=== PATIENT | female | born 1980 | race Caucasian/White ===

== ENCOUNTER 2023-09-17 19:06 | Emergency (ER) | payer SELFPAY ==
[2023-09-17 19:19] VITALS: BP 125/85; PULSE 95; RESP 16; TEMP 36.6; O2SAT 99; BMI 34.4
--- NOTE | 2023-09-17 19:30 | W.ED.ABDPA2 ---
HPI - Abdominal Pain General: Chief Complaint: Abdominal Pain Stated Complaint: R side pain vomit days Time Seen by Provider: 09/17/23 19:26 History of Present Illness: 43-year-old female comes in today with right upper quadrant abdominal pain that is described as severe. Patient does appear nontoxic. Patient appears in severe pain. Patient had gastric sleeve procedure done 6 months ago. For the last 2 months patient's had episodes of right upper quadrant abdominal pain that was relieved with emesis. Patient reports the pain today was worse and did not relieved after emesis. Patient has had no other abdominal surgeries and does have her gallbladder intact. Associated Symptoms: Reports nausea and vomiting; Denies constipation, diarrhea and fever(s) Related Data: Date of Last Menstrual Period: 08/20/23 Review of Systems General: Reports: 10 or more systems reviewed and unremarkable except in HPI and below Const: Denies: fever(s) Card: Denies: chest pain Resp: Denies: dyspnea GI: Reports: abdominal pain, nausea and vomiting; Denies: diarrhea or constipation : Denies: difficulty voiding [facility] ED Female Reproductive History: Date of last menstrual period: 08/20/23 Physical Exam Const: COMMON NORMALS: alert HENMT: COMMON NORMALS: normocephalic HEAD & SCALP: normocephalic Neck/C-Spine: COMMON NORMALS: full ROM Chest: COMMONS NORMALS: normal inspection of the chest Resp: COMMON NORMALS: normal respiratory effort and clear to auscultation bilaterally AUSCULTATION: clear to auscultation bilaterally Cardio: COMMON NORMALS: regular rate and regular rhythm RATE: regular rate RHYTHM: regular rhythm GI: COMMON NORMALS: Soft to palpation PALPATION: Yes Soft to palpation and Yes Tenderness to palpation present (GI) Details: RUQ : COMMON NORMALS: Yes no CVA tenderness BLADDER/KIDNEY EXAM: Yes no CVA tenderness OB/EXTERNAL & SPECULUM: other (No ulcer or definitive dehiscence, small amount of blood in vaginal vault) Back/Pelvis: COMMON NORMALS: no CVA tenderness Extremity: COMMON NORMALS: normal to inspection Neuro: SENSORIUM/ORIENTATION: Yes alert Skin: COMMON NORMALS: turgor normal GENERAL SKIN EXAM: turgor normal Course Vital Signs: Vital signs: Vital Signs Temperature 97.8 F 09/17/23 19:19 Pulse Rate 95 09/17/23 19:19 Respiratory Rate 18 12/06/23 19:50 Blood Pressure 125/85 09/17/23 19:19 Pulse Oximetry 99 09/17/23 19:19 MDM - Abdominal Pain Medical Decision Making 43-year-old female comes in today with right upper quadrant abdominal pain. On exam patient appears nontoxic. Patient appears in moderate to severe pain. Abdomen soft with some right upper quadrant tenderness. No CVA tenderness. Vital signs are normal. Differential diagnosis includes not limited to gallbladder colic, renal colic, pancreatitis, gastroenteritis, unlikely ACS. CBC and CMP noted some mild increase in alkaline phosphatase and AST's. Bilirubin was normal. CT of the abdomen pelvis noted a 23 mm ovarian cyst on the right side. Gallbladder ultrasound noted several small stones in the gallbladder. Patient's pain was relieved with IV medications. Believe patient probably had gallbladder colic secondary to her cholelithiasis. Patient was recommended to follow-up with surgeon for further evaluation and treatment. Patient be started on dicyclomine, hydrocodone, and ondansetron for control of symptoms until definitive care with gallbladder removal is completed. Case management was requested to have patient follow-up with surgeon. Lab Data 09/17/23 19:36 09/17/23 19:36 Labs/Radiology: Radiology Impressions Abdomen/Pelvis CT 09/17/23 19:36 IMPRESSION: 1. Right ovary 23 mm cyst with minimal peripheral enhancement may reflect a partially collapsed follicle. 2. Fluid in the uterine cavity, likely related to menstrual status. 3. Minimal diverticulosis without diverticulitis. 4. Gastric surgical sutures. 5. Hepatic steatosis. 6. Gallbladder is somewhat distended. Laboratory Results WBC 10.37 10^3/uL (3.29-11.43) 09/17/23 19:36 RBC 5.08 10^6/uL (3.85-5.65) 09/17/23 19:36 Hgb 13.70 g/dL (11.27-16.99) 09/17/23 19:36 Hct 42.1 % (36-47) 09/17/23 19:36 MCV 82.9 fl (85-98) L 09/17/23 19:36 MCH 27.0 pg (27-33) 09/17/23 19:36 MCHC 32.5 g/dL (30-55) 09/17/23 19:36 RDW 14.4 % (12.1-15.1) 09/17/23 19:36 Plt Count 255 10^3/cmm (157-399) 09/17/23 19:36 MPV 12.8 fL (7.4-10.4) H 09/17/23 19:36 Neut % (Auto) 68.4 % 09/17/23 19:36 Lymph % (Auto) 26.5 % 09/17/23 19:36 [place] % (Auto) 4.2 % 09/17/23 19:36 Eos % (Auto) 0.4 % 09/17/23 19:36 Baso % (Auto) 0.2 % 09/17/23 19:36 Neut # (Auto) 7.09 10^3/uL (1.8-7.7) 09/17/23 19:36 Lymph # (Auto) 2.8 10^3/uL (0.8-4.8) 09/17/23 19:36 [place] # (Auto) 0.4 10^3/uL (0.2-0.9) 09/17/23 19:36 Eos # (Auto) 0.0 10^3/uL (0.0-0.8) 09/17/23 19:36 Baso # (Auto) 0.0 10^3/uL (0.0-0.1) 09/17/23 19:36 Nucleated RBC % (auto) 0 % 09/17/23 19:36 Nucleated RBCs # 0.0 /100WBC 09/17/23 19:36 Sodium 137 mmol/L (136-145) 09/17/23 19:36 Potassium 3.8 mmol/L (3.5-5.1) 09/17/23 19:36 Chloride 104 mmol/L (98-107) 09/17/23 19:36 Carbon Dioxide 23 mmol/L (22-29) 09/17/23 19:36 Anion Gap 13.8 (5-19) 09/17/23 19:36 BUN 9 mg/dL (6-20) 09/17/23 19:36 Creatinine 0.6 mg/dL (0.5-0.9) 09/17/23 19:36 GFR Calculation 108.6 mL/min (90-130) 09/17/23 19:36 Glucose 110 mg/dL (65-115) 09/17/23 19:36 Calculated Osmolality 283 mOsm/kg (285-295) L 09/17/23 19:36 Calcium 9.2 mg/dL (8.5-10.5) 09/17/23 19:36 Total Bilirubin 0.4 mg/dL (0.15-1.2) 09/17/23 19:36 AST 49 U/L (0-32) H 09/17/23 19:36 ALT 24 U/L (0-33) 09/17/23 19:36 Alkaline Phosphatase 120 U/L (35-105) H 09/17/23 19:36 Troponin T Baseline < 6 ng/L (0-10) 09/17/23 19:38 Total Protein 7.2 g/dL (6.6-8.7) 09/17/23 19:36 Albumin 4.2 g/dL (3.5-5.2) 09/17/23 19:36 Globulin 3.0 g/dL (1.3-4.6) 09/17/23 19:36 Lipase 42 U/L (13-60) 09/17/23 19:36 HCG, Qual Negative (Negative) 09/17/23 19:36 All radiology interpretation(s) finalized by discharge EKG Data EKG 1: EKG interpretation date: 09/17/23 EKG interpretation time: 19:40 Prior EKG tracings: not available for review Interpretation: EKG shows a sinus rhythm with a regular rate at [address] elevation or ectopy is noted. No prior exam was available for comparison. Computer generated interpretation: Sinus rhythm, normal EKG, unconfirmed report. Discharge Plan Discharge Patient Disposition: Home Clinical Impression: Gallbladder colic Condition: Stable Prescriptions: New dicyclomine 20 mg tablet 20 mg PO TID Qty: 30 2RF Rx Instructions: Use 30 minutes prior to your meal in order to avoid gallbladder pain. hydrocodone-acetaminophen 5-325 mg tablet 1 tab PO Q6H PRN (Reason: pain (scale score 7-10)) Qty: 10 0RF ondansetron HCl 4 mg tablet 4 mg PO Q8H PRN (Reason: nausea and vomiting) Qty: 15 0RF Discharge Orders: Discharge ED (Routine); Ordered 12/06/23 Ordered By: Jean Claude Griffith Referrals: Anya Bazan FNP [Primary Care Provider] - Discharge Diet: Usual diet Discharge Activity: Increase activity as tolerated Patient Instructions: Biliary Colic (ED), Opioid Safety Activity Restrictions/Additional Instructions: Eat a light diet. Stay on a clear liquid diet until abdominal pain resolves. Then increase diet up to a bland diet. Avoid really greasy and fatty foods as they will cause the gallbladder to contract more increasing risk of pain and discomfort. Drink plenty of water and fluids. Follow-up with primary care for further instructions. Return to ED for worsening symptoms such as high fever, blood in vomit or stool, uncontrolled pain, or new concerns. Coding Level of Care Code ED Fuel Technician for Beto Schulz
--- NOTE | 2023-09-17 19:36 | CTR_ITS ---
PROCEDURE INFORMATION: Exam: CT Abdomen And Pelvis With Contrast Exam date and time: 09/17/2023 8:17 PM Age: 43 years old Clinical indication: Abdominal pain; Localized; Right upper quadrant (ruq); Prior surgery; Surgery date: 6+ months; Surgery type: Gastric sleeve. Patient HX: Ruq pain/base of right lung pain; Additional info: Right abd pain, 6-month status post gastric sleeve, history of renal TECHNIQUE: Imaging protocol: Computed tomography of the abdomen and pelvis with contrast. Radiation optimization: All CT scans at this facility use at least one of these dose optimization techniques: automated exposure control; mA and/or kV adjustment per patient size (includes targeted exams where dose is matched to clinical indication); or iterative reconstruction. Contrast material: OMNI 350; Contrast volume: 100 ml; Contrast route: INTRAVENOUS (IV); REPORTING DATA: Count of CT and Cardiac NM exams in prior 12 months: This patient has received 0 known CTs and 0 known cardiac nuclear medicine studies in the 12 months prior to the current study. COMPARISON: US OB limited [id number] 10/31/2016 7:12 AM RADIATION DOSE METRICS: Total DLP (mGy-cm): 841.61 FINDINGS: Liver: Hepatic steatosis. Gallbladder and bile ducts: Gallbladder is somewhat distended. Pancreas: Normal. No ductal dilation. Spleen: Normal. No splenomegaly. Adrenal glands: Normal. No mass. Kidneys and ureters: Normal. No hydronephrosis. Stomach and bowel: Minimal diverticulosis without diverticulitis. Gastric surgical sutures. Appendix: No evidence of appendicitis. Intraperitoneal space: Unremarkable. No free air. No significant fluid collection. Vasculature: Unremarkable. No abdominal aortic aneurysm. Lymph nodes: Unremarkable. No enlarged lymph nodes. Urinary bladder: Unremarkable as visualized. Reproductive: Right ovary 23 mm cyst with minimal peripheral enhancement may reflect a partially collapsed follicle. Fluid in the uterine cavity, likely related to menstrual status. Bones/joints: Unremarkable. No acute fracture. Soft tissues: Unremarkable. CT/CT abdomen pelvis w con* [id number] IMPRESSION: 1. Right ovary 23 mm cyst with minimal peripheral enhancement may reflect a partially collapsed follicle. 2. Fluid in the uterine cavity, likely related to menstrual status. 3. Minimal diverticulosis without diverticulitis. 4. Gastric surgical sutures. 5. Hepatic steatosis. 6. Gallbladder is somewhat distended.
--- NOTE | 2023-09-17 19:38 | ECG_ITS ---
[facility] Test Date: 2023-09-17 Pat Name: Jyoti Griffith Department: Room: Gender: Female Weight And Test Bar Clerk: : 1980 Requested By: Jean Claude Busch Order Number: [id number] Chepe MD: Jack Spence M.D. Measurements Intervals [place] Rate: 98 P: 62 TX: 134 QRS: 32 QRSD: 80 T: 34 QT: 348 QTc: 444 Interpretive Statements SINUS RHYTHM No previous ECG available for comparison Electronically Signed On 09-18-2023 6:01:40 SYNTHETIC DEPARTMENT SUPERVISOR by Jack Spence M.D. [id number]
[2023-09-17] MEDS: ketorolac 30 mg/mL INJ 15 MG IVP (19:49)
[2023-09-17 19:50] VITALS: RESP 18
[2023-09-17 19:50] LABS: Basophils % 0.2 %; Eosinophils % 0.4 %; Hematocrit 42.1 % (36-47); Lymphocytes # 2.8 10^3/uL (0.8-4.8); Lymphocytes % 26.5 %; Mean Corpuscular HGB Conc 32.5 g/dL (30-55); Mean Corpuscular Volume 82.9 fl (85-98); Mean Platelet Volume 12.8 fL (7.4-10.4); Monocytes # 0.4 10^3/uL (0.2-0.9); Monocytes % 4.2 %; Neutrophils # 7.09 10^3/uL (1.8-7.7); Neutrophils % 68.4 %; Nucleated Red Blood Cells % 0 %; Platelet Count 255 10^3/cmm (157-399); Red Blood Count 5.08 10^6/uL (3.85-5.65); Red Cell Distribution Width 14.4 % (12.1-15.1); White Blood Count 10.37 10^3/uL (3.29-11.43)
[2023-09-17] MEDS: ondansetron 2 mg/ML SDV 2 mL 4 MG IVP (19:50)
[2023-09-17] MEDS: fentaNYL 50 mcg/mL INJ 2mL 85 MCG IVP (19:50)
[2023-09-17 19:59] LABS: Alanine Aminotransferase 24 U/L (0-33); Albumin Level 4.2 g/dL (3.5-5.2); Alkaline Phosphatase 120 U/L (35-105); Anion Gap 13.8 (5-19); Aspartate Amino Transferase 49 U/L (0-32); Blood Urea Nitrogen 9 mg/dL (6-20); Calcium 9.2 mg/dL (8.5-10.5); Carbon Dioxide 23 mmol/L (22-29); Chloride 104 mmol/L (98-107); Glomerular Filtration Rate 108.6 mL/min (90-130); Glucose 110 mg/dL (65-115); Lipase 42 U/L (13-60); Osmolality Calculated 283 mOsm/kg (285-295); Potassium 3.8 mmol/L (3.5-5.1); Sodium 137 mmol/L (136-145); Total Bilirubin 0.4 mg/dL (0.15-1.2); Total Protein 7.2 g/dL (6.6-8.7)
[2023-09-17 20:02] LABS: Troponin(5th) Baseline < 6 ng/L (0-10)
[2023-09-17 20:05] LABS: HCG, Serum Qual Negative (Negative)
--- NOTE | 2023-09-17 20:07 | USR_ITS ---
PROCEDURE INFORMATION: Exam: US Abdomen, Limited; Right Upper Quadrant Exam date and time: 09/17/2023 8:31 PM Age: 43 years old Clinical indication: Abdominal pain; Prior surgery; Surgery date: 6+ months; Patient HX: Ruq pain tonight. Patient is 6 months S/P gastric sleeve surgery. Normal tbili = 0.4, elevated ast = 49, normal alt = 24, elevated alkphos = 120, normal lipase = 42, negative hcg TECHNIQUE: Imaging protocol: Real time ultrasound of the abdomen with image documentation. Limited exam focused on the right upper quadrant. COMPARISON: CT abdomen pelvis w con* [id number] 09/17/2023 8:17 PM FINDINGS: Liver: Normal. No masses. Gallbladder: Cholelithiasis. Positive Pratt's sign. Gallbladder wall thickened at 4.4 mm. Biliary ducts: Common bile duct normal 5 mm. Pancreas: Visualized pancreas is unremarkable. Right kidney: Normal. No mass. No hydronephrosis. US/US gall bladder [id number] IMPRESSION: Cholelithiasis with mild gallbladder wall thickening and a positive Pratt's sign, concerning for an evolving cholecystitis in the appropriate clinical setting, nuclear medicine HIDA scan could further characterize this as clinically indicated.
[2023-09-17] MEDS: iohexol 350 mg/mL 500 mL Btl (per mL) IV (20:27)
[2023-09-17 21:17] VITALS: PULSE 80; RESP 16; O2SAT 99
--- NOTE | 2023-09-17 21:25 | PC.NURSE ---
Pt was discharged prior to obtaining urine specimen during patient's stay.
--- NOTE | 2023-09-18 07:35 | DCPLANNER ---
Referral was sent to general surgery on 09/18/23 at 0735. Clinic to contact patient.
== END 2023-09-17 21:26 | disposition home or self-care (01) ==
PROVIDERS: Emergency Provider Nurse Practitioner Family; PCP Nurse Practitioner
DX: K80.20 Calculus of gallbladder without cholecystitis without obstruction (principal); N83.201 Unspecified ovarian cyst, right side; K57.90 Diverticulosis of intestine, part unspecified, without perforation or abscess without bleeding
CPT/HCPCS: 36415; 74177; 76705; 80053; 83690; 84484; 84703; 85025; 93005; 96374; 96375; 99285; J1885; J2405; J3010; Q9967

== ENCOUNTER 2023-10-12 16:38 | Observation (INO) | payer SELFPAY ==
[2023-10-12] VITALS (7 sets, daily range): BP systolic 99–131; BP diastolic 67–94; PULSE 78–87; RESP 14–25; TEMP 36.4–36.9; O2SAT 99–100; BMI 33.7
--- NOTE | 2023-10-12 17:26 | ED_ITS ---
HPI - Abdominal Pain 2 General: Chief Complaint: Abdominal Pain Stated Complaint: abd pains, vomiting Time Seen by Provider: 10/12/23 16:51 History of Present Illness: Jyoti Griffith is a 43-year-old female that presents to the emergency department with complaints of right upper quadrant pain. Patient is tearful reports she is in quite a bit of pain. Patient has taken 2 hydrocodone's without any relief of her symptoms. 43-year-old female comes in today with r ight upper quadrant abdominal pain that is described as severe. Patient does appear nontoxic. Patient appears in severe pain. Patient had gastric sleeve procedure done 6 months ago. For the last 2 months patient's had episodes of right upper quadrant abdominal pain that was relieved with emesis. Patient reports the pain today was worse and did not relieved after emesis. Patient has had no other abdominal surgeries and does have her gallbladder intact. Patient saw Dr. Garber 2 weeks ago After a complete history, physical examination and review of all available clinical data I have offered the patient laparoscopic cholecystectomy for symptomatic cholelithiasis. All the risk and benefits of the procedure were discussed with the patient including the risks of bleeding, infection, damage to surrounding structures including liver, duodenum, colon, risk of injuring bile ducts requiring extensive surgery at higher level of care facility, risk of retained stones, bile leak, bili [place], need for subtotal cholecystectomy, hernia and wound related complications, need to conversion to open procedure. Patient shows understanding and would like to proceed. Lap zee will be booked for the next available or day, additional information regarding the procedure will be given to the patient in printed format. Of note patient has been informed that due to history of previous abdominal surgery, she is increased risk for damage to adjacent organs during access and during operation due to possibility of additions. In addition high BMI makes her high risk for hernia. Associated Symptoms: Reports nausea; Denies bloating, chills, constipation, GI cramping, diarrhea, dysuria, fever(s), hematochezia, hematuria and vomiting Review of Systems 2 General: Reports: 10 or more systems reviewed and unremarkable except in HPI and below Const: Denies: fever(s), chills, change in appetite, change in weight, fatigue or malaise Eyes: Denies: change in vision, eye discomfort, eye discharge or eye redness ENMT: Denies: throat pain, enlarged tonsils, odynophagia, hoarseness, ear or mastoid pain, ear discharge, change in hearing, tinnitus, nasal discharge, nasal congestion, post nasal drip or sinus pain Card: Denies: chest pain, palpitations, irregular heart rhythm, edema, dyspnea on exertion, orthopnea or leg pain with exertion Resp: Denies: dyspnea, productive cough, non-productive cough, wheezing, stridor or chest congestion GI: Reports: abdominal pain and nausea; Denies: vomiting, dysphagia, diarrhea, constipation, bloating, GI cramping or hematochezia : Denies: flank pain, difficulty voiding, dysuria, urinary frequency, urinary urgency, urinary hesitancy, oliguria or hematuria Musc: Denies: neck pain, back pain, extremity pain, joint pain, joint swelling, joint redness, joint warmth or muscle weakness Skin/Breast: Denies: rash, pruritus, erythema, photosensitivity or new lesions Neuro: Denies: headache(s), numbness in extremities, weakness in extremities, sensory changes, lack of coordination, difficulty walking, frequent falls, dizziness, confusion, Slurred speech present, difficulty communicating thoughts, seizure-like activity or involuntary movements Endo: Denies: polyuria, polydipsia or tired all the time Lui/Lymph: Denies: easy bruising or easy bleeding PFSH ED 2 PFSH: Social History (Updated 09/22/23 @ 12:58 by KRYSTAL Teague) Smoking and tobacco/nicotine status: former use of tobacco/nicotine Alcohol intake: current Alcohol intake frequency: holidays/special occasions only Physical Exam 2 Const: COMMON NORMALS: no acute distress, patient oriented x3 and alert G ENERAL APPEARANCE: cooperative ORIENTATION/CONSCIOUSNESS: Yes awake, Yes oriented to person, Yes oriented to place and Yes oriented to time HENMT: COMMON NORMALS: normocephalic and atraumatic HEAD & SCALP: n ormocephalic and atraumatic FACE & SINUS: normal facial exam MOUTH: Normal oral and palatal mucosa present THROAT: posterior oropharynx normal Eye: COMMON NORMALS: Equal, round and reactive pupils present, EOMs intact bilaterally, conjunctivae normal and no scleral icterus GENERAL EYE: a ppearance normal, both eyes and all related structures ALIGNMENT: Yes alignment normal PERIORBITAL: periorbital findings normal CONJUNCTIVA: Yes conjunctivae normal PUPIL: Yes Equal, round and reactive pupils present Neck/C-Spine: COMMON NORMALS: full ROM GENERAL: Yes normal visual inspection Lymph: LYMPHATIC: no lymphadenopathy noted Chest: COMMONS NORMALS: normal inspection of the chest Breast/axilla inspection: Yes no chest deformity, asymmetry, normal contours, no nodules, masses, tenderness Resp: COMMON NORMALS: normal respiratory effort, No retractions, No use of accessory muscles and clear to auscultation bilaterally EFFORT & INSPECTION: Yes able to speak in complete sentences and Yes symmetric chest movement A USCULTATION: clear to auscultation bilaterally Cardio: COMMON NORMALS: regular rate, regular rhythm and Peripheral pulses 2+ throughout RATE: regular rate RHYTHM: regular rhythm PERIPHERAL PULSES: Peripheral pulses 2+ throughout GI: COMMON NORMALS: Normal to inspection, nondistended, normoactive bowel sounds present, Soft to palpation and No hepatosplenomegaly present I NSPECTION: Yes normal to inspection AUSCULTATION: Yes normoactive bowel sounds PALPATION: Yes Soft to palpation, Yes Tenderness to palpation present (GI) Details: RUQ (Radiating to the back) and Yes No hepatosplenomegaly present RECTAL EXAM: deferred Extremity: COMMON NORMALS: normal to inspection GENERAL: Yes normal exam except as noted Neuro: COMMON NORMALS: patient oriented x3 SENSORIUM/ORIENTATION: Yes alert, Yes oriented to person, Yes oriented to place and Yes oriented to time CRANIAL NERVES: Yes CN normal except as noted Psych: COMMON NORMALS: mental status grossly normal, Normal thought process present, cooperative, activity/motor behavior normal, denies homicidal ideation and denies suicidal ideation THOUGHT PROCESS: Normal thought process present Skin: COMMON NORMALS: no rashes or lesions noted, no wounds and turgor normal GENERAL SKIN EXAM: no rashes or lesions noted and turgor normal Course 2 Vital Signs: Vital signs: Vital Signs Temperature 98.4 F 10/12/23 17:08 Pulse Rate 87 10/12/23 20:00 Respiratory Rate 25 H 10/12/23 17:46 Blood Pressure 105/72 10/12/23 20:00 Pulse Oximetry 100 10/12/23 20:00 Oxygen Delivery Me thod Room Air 10/12/23 20:00 MDM - Abdominal Pain Medical Decision Making Patient was evaluated in the emergency department for complaints of right upper quadrant abdominal pain. Patient already has diagnosis of cholecystitis and has been evaluated by general surgery on 09/22/2023. Today in the emergency department we reran labs that included a CBC, CMP and lipase. No evidence of pancreatitis. Patient does have a low leukocytosis of 15,000 with elevated liver enzymes and elevated bilirubin. I did speak with Dr. Garber who has recommended a repeat ultrasound to rule out biliary duct dilation. The ultrasound was complete at 8 PM which revealed multiple gallstones, biliary sludge, 4.2 mm gallbladder wall thickening but no biliary duct dilation. Patient to be given a dose of Toradol and Zosyn. Admit to Dr. Garber. Lab Data 10/12/23 17:37 10/12/23 17:37 Labs/Radiology: Radiology Impressions Gallbladder Ultrasound 10/12/23 19:26 IMPRESSION: 1. Multiple gallstones within the gallbladder. 2. Biliary sludge within the gallbladder. 3. 4.2 mm gallbladder wall thickening consistent with cholecystitis versus hepatitis. Laboratory Results WBC 14.31 10^3/uL (3.29-11.43) H 10/12/23 17:37 RBC 5.09 10^6/uL (3.85-5.65) 10/12/23 17:37 Hgb 13.90 g/dL (11.27-16.99) 10/12/23 17:37 Hct 42.2 % (36-47) 10/12/23 17:37 MCV 82.9 fl (85-98) L 10/12/23 17:37 MCH 27.3 pg (27-33) 10/12/23 17:37 MCHC 32.9 g/dL (30-55) 10/12/23 17:37 RDW 14.5 % (12.1-15.1) 10/12/23 17:37 Plt Count 220 10^3/cmm (157-399) 10/12/23 17:37 MPV 13.3 fL (7.4-10.4) H 10/12/23 17:37 Neut % (Auto) 84.5 % 10/12/23 17:37 Lymph % (Auto) 11.0 % 10/12/23 17:37 [place] % (Auto) 3.8 % 10/12/23 17:37 Eos % (Auto) 0.1 % 10/12/23 17:37 Baso % (Auto) 0.1 % 10/12/23 17:37 Neut # (Auto) 12.10 10^3/uL (1.8-7.7) H 10/12/23 17:37 Lymph # (Auto) 1.6 10^3/uL (0.8-4.8) 10/12/23 17:37 [place] # (Auto) 0.5 10^3/uL (0.2-0.9) 10/12/23 17:37 Eos # (Auto) 0.0 10^3/uL (0.0-0.8) 10/12/23 17:37 Baso # (Auto) 0.0 10^3/uL (0.0-0.1) 10/12/23 17:37 Nucleated RBC % (auto) 0 % 10/12/23 17:37 Nucleated RBCs # 0.0 /100WBC 10/12/23 17:37 Sodium 135 mmol/L (136-145) L 10/12/23 17:37 Potassium 3.5 mmol/L (3.5-5.1) 10/12/23 17:37 Chloride 101 mmol/L (98-107) 10/12/23 17:37 Carbon Dioxide 18 mmol/L (22-29) L 10/12/23 17:37 Anion Gap 19.5 (5-19) H 10/12/23 17:37 BUN 9 mg/dL (6-20) 10/12/23 17:37 Creatinine 0.6 mg/dL (0.5-0.9) 10/12/23 17:37 GFR Calculation 108.6 mL/min (90-130) 10/12/23 17:37 Glucose 116 mg/dL (65-115) H 10/12/23 17:37 Calculated Osmolality 280 mOsm/kg (285-295) L 10/12/23 17:37 Lactic Acid 1.7 mmol/L (0.5-2.2) 10/12/23 17:37 Calcium 9.6 mg/dL (8.5-10.5) 10/12/23 17:37 Total Bilirubin 1.9 mg/dL (0.15-1.2) H 10/12/23 17:37 GGT 224 U/L (5-36) H 10/12/23 17:37 AST 277 U/L (0-32) H 10/12/23 17:37 ALT 209 U/L (0-33) H 10/12/23 17:37 Lactate Dehydrogenase 292 U/L (135-214) H 10/12/23 17:37 Lipase 30 U/L (13-60) 10/12/23 17:37 All radiology interpretation(s) finalized by discharge Discharge Plan Discharge Patient Disposition: Admitted As Inpatient Admit Provider: Jose Miguel Garber Clinical Impression: Cholelithiasis with acute cholecystitis Condition: Stable Coding Level of Care Code ED Manager Of Development for Beto Schulz
[2023-10-12] MEDS: fentaNYL 50 mcg/mL INJ 2mL IVP (17:46)
[2023-10-12] MEDS: ondansetron 2 mg/ML SDV 2 mL 4 MG IVP (17:46)
[2023-10-12] MEDS: sodium chloride 0.9% 1,000 ML 999 ML IV (17:46)
[2023-10-12 18:05] LABS: Basophils % 0.1 %; Eosinophils % 0.1 %; Hematocrit 42.2 % (36-47); Lymphocytes # 1.6 10^3/uL (0.8-4.8); Mean Corpuscular HGB Conc 32.9 g/dL (30-55); Mean Corpuscular Hemoglobin 27.3 pg (27-33); Mean Corpuscular Volume 82.9 fl (85-98); Mean Platelet Volume 13.3 fL (7.4-10.4); Monocytes # 0.5 10^3/uL (0.2-0.9); Monocytes % 3.8 %; Neutrophils % 84.5 %; Nucleated Red Blood Cells % 0 %; Platelet Count 220 10^3/cmm (157-399); Red Blood Count 5.09 10^6/uL (3.85-5.65); Red Cell Distribution Width 14.5 % (12.1-15.1); White Blood Count 14.31 10^3/uL (3.29-11.43)
[2023-10-12 18:30] LABS: Anion Gap 19.5 (5-19); Blood Urea Nitrogen 9 mg/dL (6-20); Calcium 9.6 mg/dL (8.5-10.5); Carbon Dioxide 18 mmol/L (22-29); Chloride 101 mmol/L (98-107); Glomerular Filtration Rate 108.6 mL/min (90-130); Glucose 116 mg/dL (65-115); Lipase 30 U/L (13-60); Osmolality Calculated 280 mOsm/kg (285-295); Potassium 3.5 mmol/L (3.5-5.1); Sodium 135 mmol/L (136-145)
[2023-10-12 18:31] LABS: Lactic Sepsis W/Reflex 1.7 mmol/L (0.5-2.2)
[2023-10-12 19:13] LABS: Alanine Aminotransferase 209 U/L (0-33); Aspartate Amino Transferase 277 U/L (0-32); Gamma Glutamyl Transferase 224 U/L (5-36); Lactate Dehydrogenase 292 U/L (135-214); Total Bilirubin 1.9 mg/dL (0.15-1.2)
--- NOTE | 2023-10-12 19:26 | USR_ITS ---
PROCEDURE INFORMATION: Exam: US Abdomen, Limited; Right Upper Quadrant Exam date and time: 10/12/2023 7:41 PM Age: 43 years old Clinical indication: Abdominal pain; Acute; Prior surgery; Surgery date: 6+ months; Surgery type: Gastric sleeve; Additional info: Ruq pain-diagnosed with cholelithiasis TECHNIQUE: Imaging protocol: Real time ultrasound of the abdomen with image documentation. Limited exam focused on the right upper quadrant. COMPARISON: US gall bladder [id number] 09/17/2023 8:31 PM FINDINGS: Liver: 13.0 cm liver. Gallbladder: Multiple gallstones within the gallbladder. Biliary sludge within the gallbladder. 4.2 mm gallbladder wall thickening consistent with cholecystitis versus hepatitis. Biliary ducts: Normal 3.8 mm common bile duct. Pancreas: Visualized pancreas is unremarkable. Right kidney: 10.9 x 4.5 x 4.3 cm right kidney. Aorta: 1.4 cm abdominal aortic diameter. Inferior vena cava: 1.7 cm IVC. US/US gall bladder [id number] IMPRESSION: 1. Multiple gallstones within the gallbladder. 2. Biliary sludge within the gallbladder. 3. 4.2 mm gallbladder wall thickening consistent with cholecystitis versus hepatitis.
[2023-10-12] MEDS: ketorolac 30 mg/mL INJ IVP ×2 (20:29→23:10)
[2023-10-12] MEDS: piperacillin-tazobactam 3.375 GM in sodium chloride 0.9% (plus) 50 ML IV (20:30)
[2023-10-12] MEDS: sodium chloride 0.9% 1,000 ML 100 ML IV (22:44)
[2023-10-13 03:16] VITALS: BP 101/71; PULSE 76; RESP 14; TEMP 36.8; O2SAT 97
[2023-10-13 03:56] LABS: Basophils % 0.3 %; Eosinophils % 0.1 %; Hematocrit 41.2 % (36-47); Lymphocytes # 2.1 10^3/uL (0.8-4.8); Lymphocytes % 28.8 %; Mean Corpuscular HGB Conc 31.6 g/dL (30-55); Mean Corpuscular Hemoglobin 26.7 pg (27-33); Mean Corpuscular Volume 84.6 fl (85-98); Mean Platelet Volume 13.2 fL (7.4-10.4); Monocytes # 0.4 10^3/uL (0.2-0.9); Monocytes % 5.1 %; Neutrophils % 65.4 %; Nucleated Red Blood Cells % 0 %; Platelet Count 189 10^3/cmm (157-399); Red Blood Count 4.87 10^6/uL (3.85-5.65); Red Cell Distribution Width 14.5 % (12.1-15.1); White Blood Count 7.19 10^3/uL (3.29-11.43)
[2023-10-13 04:21] LABS: Albumin Level 3.5 g/dL (3.5-5.2); Alkaline Phosphatase 166 U/L (35-105); Blood Urea Nitrogen 7 mg/dL (6-20); Calcium 8.7 mg/dL (8.5-10.5); Carbon Dioxide 15 mmol/L (22-29); Chloride 109 mmol/L (98-107); Glomerular Filtration Rate 173.4 mL/min (90-130); Glucose 77 mg/dL (65-115); Osmolality Calculated 283 mOsm/kg (285-295); Sodium 138 mmol/L (136-145); Total Bilirubin 1.1 mg/dL (0.15-1.2); Total Protein 6.5 g/dL (6.6-8.7)
[2023-10-13 04:24] LABS: Alanine Aminotransferase 325 U/L (0-33); Anion Gap 18.4 (5-19); Aspartate Amino Transferase 356 U/L (0-32); Potassium 4.4 mmol/L (3.5-5.1)
[2023-10-13] MEDS: ketorolac 30 mg/mL INJ IVP ×2 (04:59→11:26)
[2023-10-13] MEDS: piperacillin-tazobactam 3.375 GM in sodium chloride 0.9% (plus) 50 ML IV ×2 (04:59→11:27)
--- NOTE | 2023-10-13 07:16 | P.HP_ITS ---
Providers/Chief Complaint 2 Admitting Physician: Jose Miguel Garber MD Primary Care Provider: CHELY Garibay Chief Complaint: abd pains, vomiting History of Present Illness Jyoti Griffith is a 43 year old female who presented to the hospital yesterday complaining of right upper quadrant pain. Per patient report the pain has been there for about 4 to 5 days, is colicky in nature and has become intense over the last 24 hours and therefore she decided to present. I have previously seen the patient in my clinic for symptomatic cholelithiasis and her surgery is scheduled for early November. After workup in the emergency department it was noted that the patient had an elevated white count to 14,000 and elevated LFTs. Therefore I was asked to evaluate the patient. Patient was admitted for overnight observation, IV antibiotics. This morning on my evaluation patient symptoms have resolved no significant abdominal pain. Patient is hungry. Review of Systems 2 General: Reports: 10 or more systems reviewed and unremarkable except in HPI and below Medications/Allergies Home Medications Medication Instructions Recorded Confirmed Last Taken Type dicyclomine 20 mg tablet 20 mg PO TID #30 tabs 09/17/23 Unknown Rx hydrocodone 5 mg-acetaminophen 325 1 tab PO Q6H PRN pain (scale score 09/17/23 Unknown Rx mg tablet 7-10) #10 tabs ondansetron HCl 4 mg tablet 4 mg PO Q8H PRN nausea and 09/17/23 Unknown Rx vomiting #15 tabs omeprazole 20 mg capsule,delayed 20 mg PO DAILY 09/22/23 09/22/23 Unknown History release Allergies Allergy/AdvReac Type Severity Reaction Status Date / Time No Known Allergies Allergy Unverified 10/12/23 17:12 PFSH Acute 2 PFSH: Social History (Updated 09/22/23 @ 12:58 by KRYSTAL Teague) Smoking and tobacco/nicotine status: former use of tobacco/nicotine Alcohol intake: current Alcohol intake frequency: holidays/special occasions only Vitals/I&O/Wt Last Vital Signs Temp 98.3 F 10/13/23 03:16 Pulse 76 10/13/23 03:16 Resp 14 10/13/23 03:16 BP 101/71 10/13/23 03:16 Pulse Ox 97 10/13/23 03:16 O2 Del Method Room Air 10/13/23 03:16 10/12/23 10/13/23 10/13/23 22:59 06:59 14:59 Intake Total 1050 / 1050 50 / 1100 Balance 1050 / 1050 50 / 1100 Weight last 48 hrs Weight 184 lb 5 oz Weight 178 lb Physical Exam 2 Narrative: General : Patient is well developed , no acute distress, oriented x3 Head : Normal cephalic, a-traumatic. Nose : Mucous membranes are without erythema. Lungs : Equal chest rise bilaterally, no use of accessory muscles, trachea is midline. CV : Rate and rhythm are normal. Abdomen : Soft, ND, NT, no g/r/m Extremities : No edema. Upper extremities are normal bilaterally. Back : non-tender to palpation, no CVA tenderness. Data 10/13/23 03:29 10/13/23 03:29 A&P Assessment and plan (1) Cholelithiasis with acute cholecystitis: Plan After complete history physical examination and review of all available clinical data the following is my assessment. Patient presentation is more consistent with acute cholecystitis during this hospital event, as evidenced by right upper quadrant tenderness and a white count of 14. Since patient's symptoms started about 4 to 8 years ago, these being outside of the [facility] 72-hour window for cholecystectomy after cholecystitis I think the most appropriate treatment will be nonoperative management with antibiotics and an interval cholecystectomy. Patient is already scheduled for it on early November. Today white count is normal, liver function test shows mild uptrending of the AST and ALT but downtrending of the bilirubin. I will start the patient on full liquid diet, encourage ambulation and if she is tolerating a plan to advance her to a low-fat diet in the afternoon. Plan is for discharge either this afternoon or tomorrow morning depending on patient progression. Attestations 2 Medical Necessity Statement*: Patient will require 24 hours of hospital stay for IV antibiotics and symptomatic management of acute cholecystitis Coding Level of Care Code 97983 Diagnoses Cholelithiasis with acute cholecystitis K80.00
[2023-10-13 07:42] VITALS: BP 102/68; PULSE 80; RESP 14; TEMP 36.8; O2SAT 97
[2023-10-13] MEDS: pantoprazole 40 mg SDV IVP (07:52)
[2023-10-13] MEDS: sodium chloride 0.9% 1,000 ML 100 ML IV (10:31)
[2023-10-13 11:42] VITALS: PULSE 73; RESP 16; TEMP 36.6; O2SAT 98
--- NOTE | 2023-10-13 11:56 | PM.DCS ---
Discharge Providers Date of Admission: 10/12/23 20:44 Date of Discharge: October 13, 2023 Attending Provider at Admission: Jose Miguel Garber MD Attending Provider at Discharge: Jose Miguel Garber MD Primary Care Provider: CHELY Garibay Diagnoses at Discharge Discharge Diagnosis (1) Cholelithiasis with acute cholecystitis: Status: Acute Reason for Visit Reason for Visit: abd pains, vomiting Hospital Course Hospital Course 43-year-old female admitted with abdominal pain and elevated white count, ultrasound of the abdomen showed evidence of gallbladder wall thickening suspicious for cholecystitis. Pain has been there for at least 4 days, making surgery high risk for bile duct injury, therefore we decided to proceed with nonoperative management. Over the last 12 hours patient has been doing great no abdominal pain tolerating diet. Patient has expressed interest in going home. Will send her home with some antibiotics and her procedure will be scheduled for early November. Physical Exam GI: OTHER: Abdomen soft nontender nondistended. Discharge Data Studies Completed and Pending Completed Studies During Hospitalization Category Date Time Status US gall bladder 23835 Stat Ultrasound 10/12/23 19:26 Completed Pending at discharge Category Date Time Status Basic Metabolic Panel AM LABS Lab 10/14/23 04:00 Ordered CBC Auto Diff [Complete Blood Count w/Auto] AM LABS Lab 10/14/23 04:00 Ordered LFT [Liver Panel] AM LABS Lab 10/14/23 04:00 Ordered Radiology Impressions Gallbladder Ultrasound 10/12/23 19:26 IMPRESSION: 1. Multiple gallstones within the gallbladder. 2. Biliary sludge within the gallbladder. 3. 4.2 mm gallbladder wall thickening consistent with cholecystitis versus hepatitis. Laboratory Results WBC 7.19 10^3/uL (3.29-11.43) 10/13/23 03:29 RBC 4.87 10^6/uL (3.85-5.65) 10/13/23 03:29 Hgb 13.00 g/dL (11.27-16.99) 10/13/23 03:29 Hct 41.2 % (36-47) 10/13/23 03:29 MCV 84.6 fl (85-98) L 10/13/23 03:29 MCH 26.7 pg (27-33) L 10/13/23 03:29 MCHC 31.6 g/dL (30-55) 10/13/23 03:29 RDW 14.5 % (12.1-15.1) 10/13/23 03:29 Plt Count 189 10^3/cmm (157-399) 10/13/23 03:29 MPV 13.2 fL (7.4-10.4) H 10/13/23 03:29 Neut % (Auto) 65.4 % 10/13/23 03:29 Lymph % (Auto) 28.8 % 10/13/23 03:29 [place] % (Auto) 5.1 % 10/13/23 03:29 Eos % (Auto) 0.1 % 10/13/23 03:29 Baso % (Auto) 0.3 % 10/13/23 03:29 Neut # (Auto) 4.70 10^3/uL (1.8-7.7) 10/13/23 03:29 Lymph # (Auto) 2.1 10^3/uL (0.8-4.8) 10/13/23 03:29 [place] # (Auto) 0.4 10^3/uL (0.2-0.9) 10/13/23 03:29 Eos # (Auto) 0.0 10^3/uL (0.0-0.8) 10/13/23 03:29 Baso # (Auto) 0.0 10^3/uL (0.0-0.1) 10/13/23 03:29 Nucleated RBC % (auto) 0 % 10/13/23 03:29 Nucleated RBCs # 0.0 /100WBC 10/13/23 03:29 Sodium 138 mmol/L (136-145) 10/13/23 03:29 Potassium 4.4 mmol/L (3.5-5.1) 10/13/23 03:29 Chloride 109 mmol/L (98-107) H 10/13/23 03:29 Carbon Dioxide 15 mmol/L (22-29) L 10/13/23 03:29 Anion Gap 18.4 (5-19) 10/13/23 03:29 BUN 7 mg/dL (6-20) 10/13/23 03:29 Creatinine 0.4 mg/dL (0.5-0.9) L 10/13/23 03:29 GFR Calculation 173.4 mL/min (90-130) H 10/13/23 03:29 Glucose 77 mg/dL (65-115) 10/13/23 03:29 Calculated Osmolality 283 mOsm/kg (285-295) L 10/13/23 03:29 Lactic Acid 1.7 mmol/L (0.5-2.2) 10/12/23 17:37 Calcium 8.7 mg/dL (8.5-10.5) 10/13/23 03:29 Total Bilirubin 1.1 mg/dL (0.15-1.2) 10/13/23 03:29 Direct Bilirubin 0.20 mg/dL (0.00-0.30) 10/13/23 03:29 GGT 224 U/L (5-36) H 10/12/23 17:37 AST 356 U/L (0-32) H 10/13/23 03:29 ALT 325 U/L (0-33) H 10/13/23 03:29 Alkaline Phosphatase 166 U/L (35-105) H 10/13/23 03:29 Lactate Dehydrogenase 292 U/L (135-214) H 10/12/23 17:37 Total Protein 6.5 g/dL (6.6-8.7) L 10/13/23 03:29 Albumin 3.5 g/dL (3.5-5.2) 10/13/23 03:29 Globulin 3.0 g/dL (1.3-4.6) 10/13/23 03:29 Lipase 30 U/L (13-60) 10/12/23 17:37 Vitals Last Vital Signs Temp 97.8 F 10/13/23 11:42 Pulse 73 10/13/23 11:42 Resp 16 10/13/23 11:42 BP 102/68 10/13/23 07:42 Pulse Ox 98 10/13/23 11:42 O2 Del Method Room Air 10/13/23 11:42 Discharge Plan Discharge Patient Disposition: Home Condition: Stable Prescriptions: New amoxicillin-pot clavulanate 875-125 mg tablet 1 tab PO Q12H Qty: 14 0RF meloxicam 7.5 mg tablet 7.5 mg PO DAILY Qty: 7 0RF Continued hydrocodone-acetaminophen 5-325 mg tablet 1 tab PO Q6H PRN (Reason: pain (scale score 7-10)) Qty: 10 0RF ondansetron HCl 4 mg tablet 4 mg PO Q8H PRN (Reason: nausea and vomiting) Qty: 15 0RF multivitamin Tablet 1 tab PO DAILY acetaminophen 500 mg Tablet 1,000 mg PO Q6H PRN (Reason: Pain) vitamin B complex Tablet 1 tab PO DAILY Geraldine 0.35 mg Tablet 0.35 mg PO BEDTIME Prilosec OTC 20 mg Tablet,Delayed Release (Dr/Ec) 20 mg PO QAM C-Semaglutide 2.5mg/Ml 40 units SUBCUT Q7D Rx Instructions: on hold (10/13/23) Discharge Orders: Discharge Order (Routine); Ordered 10/13/23 Ordered By: Jose Miguel Garber Referrals: Jose Miguel Garber MD [Physician] - (2 weeks) Anya Bazan FNP [Primary Care Provider] - Discharge Diet: Low Fat Discharge Activity: Resume usual activity Patient Instructions: Opioid Safety Activity Restrictions/Additional Instructions: Continue regular activity, please remain in a very low-fat diet, avoid processed food, attempt to have a extremely lean diet, drink a lot of fluids, you can supplement your intake with protein shakes. Your procedure will be scheduled for early November. Discharge Attestations Time Spent in Discharge Care*: less than 30 min Quality Metrics Clinical Quality Measures [ No reported AMI, CVA or VTE this stay] Coding Level of Care Code Acute Code for Chg Fwd Diagnoses Cholelithiasis with acute cholecystitis K80.00
[2023-10-13 13:55] VITALS: PULSE 73; RESP 16; TEMP 36.6; O2SAT 98
== END 2023-10-13 13:56 | disposition home or self-care (01) ==
LOC: ER 20:21 → MEDSURG 21:12
PROVIDERS: Admitting Provider Surgery; Emergency Provider Nurse Practitioner; PCP Nurse Practitioner; Visit Provider Surgery
DX: K80.00 Calculus of gallbladder with acute cholecystitis without obstruction (principal); Z87.891 Personal history of nicotine dependence
CPT/HCPCS: 36415; 76705; 80048; 80076; 82247; 82977; 83605; 83615; 83690; 84450; 84460; 85025; 96365; 96366; 96375; 96376; 99285; C9113; G0378; J1885; J2405; J2543; J3010; J7030

== ENCOUNTER 2023-11-17 09:08 | Day surgery (SDC) | payer OTHER, SELFPAY ==
[2023-11-17] VITALS (19 sets, daily range): BP systolic 98–139; BP diastolic 70–105; PULSE 72–92; RESP 14–17; TEMP 36.1–36.7; O2SAT 92–99; BMI 31.1
[2023-11-17] MEDS: sodium chloride 0.9% 1,000 ML 30 ML IV (09:49)
[2023-11-17 10:02] LABS: OR HCG Qualitative Urine Negative (Negative)
--- NOTE | 2023-11-17 10:02 | P.HP_ITS ---
Same Day Surgery H&P Indication for Procedure/HPI DATE OF PROCEDURE: November 17, 2023 CHIEF COMPLAINT/INDICATIONFOR SURGICAL PROCEDURE: Chronic cholecystitis PREOP DIAGNOSIS: Chronic cholecystitis PLANNED PROCEDURE: Operation Date: 11/17/23 11:00 Proposed Procedures p 42603 lap zee K80.20(Not Applicable) - Jose Miguel Garber MD Medications/Allergies* Home Medications Medication Instructions Recorded Confirmed Type acetaminophen 500 mg tablet 1,000 mg PO Q6H PRN Pain 10/13/23 11/14/23 History multivitamin 1 tab PO DAILY 10/13/23 11/14/23 History norethindrone (contraceptive) 0.35 0.35 mg PO BEDTIME 10/13/23 11/14/23 History mg tablet (Geraldine) omeprazole magnesium 20 mg 20 mg PO QAM 10/13/23 11/17/23 History tablet,delayed release (Prilosec OTC) vitamin B complex 1 tab PO DAILY 10/13/23 11/14/23 History Allergies/Adverse Reactions Allergy/AdvReac Type Severity Reaction Status Date / Time No Known Allergies Allergy Verified 11/17/23 09:34 Current Medications: Generic Name Dose Route Start Last Admin Trade Name Freq PRN Reason Stop Dose Admin Sodium Chloride 1,000 mls @ 30 mls/hr 11/17/23 09:30 11/17/23 09:49 Sodium Chloride 0.9% IV 11/18/23 09:29 30 mls/hr .Q24H MAVERICK Administration Pertinent History/Comorbid Conditions* Social History Smoking and tobacco/nicotine status: former use of tobacco/nicotine Alcohol intake: current Alcohol intake frequency: holidays/special occasions only Pertinent Exam Findings alert, oriented x 3, clear to auscultation bilaterally and regular rate & rhythm Recommendations Surgery/Procedure today Other Plans: I Had extensive discussion with the patient regarding the need for surgery. I have explained that since she had another gallbladder attack since the last time she was in the hospital with acute cholecystitis, there is increased chance that there is significant adhesions and inflammation of the hepatocystic triangle that may make her surgery high risk. I have explained the if that is the case she might end up with a subtotal cholecystectomy, I have also explained that there is increased risk to damage to the biliary tree requiring additional surgery. Patient has history of a sleeve gastrectomy, I have explained that abdominal entry with Optiview trocar will be her method of choice but due to her history of previous intra-abdominal surgery there is also increased risk for injuring of intra-abdominal structures while getting access. Patient shows understanding wishes to proceed with laparoscopic cholecystectomy, additional r isk and benefits were discussed during my office visit. Coding Level of Care Code Acute Code for Beto Schulz
--- NOTE | 2023-11-17 10:15 | ANES.PREANE2 ---
Pre-Anesthetic Assessment Height/Weight: Height 1.57 m Weight 77.111 kg Temp Pulse Resp BP Pulse Ox O2 Del Method 98.1 F 78 17 112/82 98 Room Air 11/17/23 09:32 11/17/23 09:32 11/17/23 09:32 11/17/23 09:32 11/17/23 09:32 11/17/23 09:42 Preop Diagnosis: Chronic cholecystitis Operation Date: 11/17/23 11:00 Proposed Procedures p 38062 lap zee K80.20(Not Applicable) - Jose Miguel Garber MD Last intake: Intake Last Liquid Date 11/16/23 Last Liquid Time 21:00 Last Solid Date 11/16/23 Last Solid Time 19:30 Social No alcohol and No tobacco Airway Submandibular: within normal limits Cervical ROM: within normal limits Mallampati: Class I Dentition: false History/ROS No significant history except as noted CV/HEM history of low bp Hepatic None reported GI None reported Metabolic None reported Anesthetic Plan ASA status: 2 Anesthesia: General Risk of > 500 ml blood loss (7ml/kg in children): No Medications/Allergies Home Medications Medication Instructions Recorded Confirmed Last Taken Type hydrocodone 5 mg-acetaminophen 325 1 tab PO Q6H PRN pain (scale score 09/17/23 11/14/23 Unknown Rx mg tablet 7-10) #10 tabs ondansetron HCl 4 mg tablet 4 mg PO Q8H PRN nausea and 09/17/23 11/14/23 Unknown Rx vomiting #15 tabs acetaminophen 500 mg tablet 1,000 mg PO Q6H PRN Pain 10/13/23 11/14/23 Unknown History multivitamin 1 tab PO DAILY 10/13/23 11/14/23 Unknown History norethindrone (contraceptive) 0.35 0.35 mg PO BEDTIME 10/13/23 11/14/23 Unknown History mg tablet (Geraldine) omeprazole magnesium 20 mg 20 mg PO QAM 10/13/23 11/17/23 11/15/23 History tablet,delayed release (Prilosec OTC) vitamin B complex 1 tab PO DAILY 10/13/23 11/14/23 Unknown History amoxicillin 875 mg-potassium 1 tab PO BID 10 days #20 tabs 11/12/23 11/17/23 11/16/23 Rx clavulanate 125 mg tablet Allergies Allergy/AdvReac Type Severity Reaction Status Date / Time No Known Allergies Allergy Verified 11/17/23 09:34 Current Medications Generic Name Dose Route Start Last Admin Trade Name Magno PRN Reason Stop Dose Admin Sodium Chloride 1,000 mls @ 30 mls/hr 11/17/23 09:30 11/17/23 09:49 Sodium Chloride 0.9% IV 11/18/23 09:29 30 mls/hr .Q24H MAVERICK Administration PFSH Anesthesia Social History (Updated 09/22/23 @ 12:58 by KRYSTAL Teague) Smoking and tobacco/nicotine status: former use of tobacco/nicotine Alcohol intake: current Alcohol intake frequency: holidays/special occasions only Data Anesthesia Cardiac Studies: No Data to Display
[2023-11-17] MEDS: ceFAZolin 2,000 MG in sodium chloride 0.9% (plus) 50 ML 100 MG IV (10:27)
[2023-11-17] MEDS: lidocaine-epi 1% 20 mL INJ INJECTION (11:00)
[2023-11-17] MEDS: BUPivacaine 0.25% INJ 10 mL INJECTION (11:00)
--- NOTE | 2023-11-17 12:51 | PM.OP ---
Operative Report Date of procedure: November 17, 2023 Pre-op diagnosis: Chronic cholecystitis Post-op diagnosis: chronic cholecystitis with cholelithiasis Post-op findings: There was very significant inflammation of the hepatocystic triangle level, there was significant thickening of the peritoneum surrounding this area, there were additions to from the omentum to the liver and the gallbladder, there were adhesions from the omentum to the anterior abdominal wall at the level of the midline, cystic duct was very dilated to about 1 cm. Procedure done: Laparoscopic cholecystectomy Specimens removed/disposition: Gallbladder Surgeon: Jose Miguel Garber MD Associate Professor Of Violin: ARTURO OR Staff Estimated blood loss: 10 Complications: None apparent Brief History: This a 43-year-old female with history of acute cholecystitis and chronic cholecystitis who presents for laparoscopic cholecystectomy. All risk benefits were discussed and documented in my preoperative notes. Procedure: Patient was brought into the OR, she was placed in a supine position. General esthesia was given. the abdomen was prepped and draped in the usual sterile fashion. Timeout was conducted. The abdomen was entered with Optiview trocar at the level of [place]'s point in the left upper quadrant, pneumoperitoneum was obtained and initial laparoscopy showed no evidence of visceral injury. Additional 12 mm trocar was placed in the infraumbilical position under direct visualization and 5 mm trocars were placed in the epigastrium right upper quadrant and right flank positions under direct visualization. The gallbladder was grasped at from the fundus and retracted cephalad, adhesions of the omentum to the gallbladder were then taken down with electrocautery, once the infundibulum of the gallbladder was visible this was grasped and retracted on the inferior lateral direction. There was significant thickening of the peritoneum of the area overlying the hepatocystic triangle, I started my dissection by opening this peritoneum carefully with electrocautery, the opening was carried in the medial and lateral directions to the edges of the liver and on the sides of the gallbladder to allow better visualization. Fibrotic changes and inflammation at the level of the hepatocystic triangle made dissection very slow and difficult, I used a commendation of blunt dissection and hydrodissection to be able to identify the structures of the hepatocystic triangle, the cystic artery and cystic duct were eventually encircled and the lower third of the gallbladder was from the liver bed obtaining critical view of safety, at this point it was noted that the cystic duct was significantly dilated and amenable to be clipped. Therefore I decided to switch the epigastric port for a 12 mm trocar and then I proceeded to double clipped the cystic artery proximally and single clipped distally and transected. I then proceeded to milk all contents from the cystic duct towards the gallbladder and after verifying proper view of safety and ensuring that no other structures were nearby I proceeded to staple the cystic duct with a 45 mm blue load Endo ANDREZ stapler. After the gallbladder was stapled a small amount of bleeding was noted from the cystic duct remnant and this was controlled with a 5 mm clip. I then proceeded to remove the gallbladder from the liver bed using electrocautery, there is significant inflammation of the posterior wall of the gallbladder making dissection from the liver very challenging, the gallbladder wall was penetrated and several stones were noted to leak into the peritoneal cavity, the stones were retrieved with suction. After the gallbladder was removed from the liver bed hemostasis was verified and the specimen was retrieved via the epigastric trocar site. I then proceeded to irrigate the gallbladder fossa ensuring proper position of the clips and the cornelius, no evidence of significant bleeding or bile leak was noted, all stones that were able to visualize were retrieved and I proceeded to irrigate around the liver to ensure that no additional stones were retained. The epigastric trocar was then removed and the fascia was closed with 0 Vicryl with a Grey-Nafisa suture passer. I then proceeded to remove the umbilical trocar and this fascia was closed with a 0 Vicryl with a Grey-Nafisa under direct visualization, 2 [id number]'s were used at this location obtaining good closure and hemostasis. The left upper quadrant and right upper quadrant trocars were removed under direct visualization and the right flank trocar was used to acquire pneumoperitoneum and subsequently removed. The wounds were irrigated and hemostasis was obtained. Local anesthesia was infiltrated. The wounds were closed in layers using #4-0 Monocryl for the skin and Dermabond was applied. At the end of the procedure all counts were correct, the patient tolerated well the procedure and was transferred to the PACU in stable condition after extubation.
[2023-11-17] MEDS: fentaNYL 50 mcg/mL INJ 2mL IVP (13:27)
[2023-11-17] MEDS: meperidine 50 mg/mL INJ 12.5 MG IVP (13:35)
[2023-11-17] MEDS: HYDROmorphone 1 mg/mL INJ 1 mL 0.5 MG IVP (13:58)
[2023-11-17] MEDS: ondansetron 2 mg/ML SDV 2 mL 4 MG IVP (14:22)
[2023-11-17] MEDS: diphenhydrAMINE 50 mg/mL SDV 1mL 25 MG IVP (14:26)
[2023-11-17] MEDS: metoclopramide 5 mg/mL SDV 2 mL 10 MG IVP (14:33)
--- NOTE | 2023-11-17 15:50 | ANE.PACU2 ---
Inpatient post-anesthesia follow up: Airway intact: Yes Vital signs: Temperature 97.7 F Pulse Rate 81 Respiratory Rate 17 Blood Pressure 98/70 Pulse Oximetry 98 Oxygen Delivery Me thod Room Air Oxygen Flow Rate 6 Fraction of Inspir ed Oxygen Hydration adequate: Yes Nausea and vomiting: No Pain level: 1 Mental status: Baseline
== END 2023-11-17 15:50 | disposition home or self-care (01) ==
PROVIDERS: Anesthesiology; PCP Nurse Practitioner; Visit Provider Surgery
PROC: 0FT44ZZ Resection of Gallbladder, Percutaneous Endoscopic Approach (ICD-10-PCS; CPT 47562; principal; 2023-11-17 10:40)
DX: K80.10 Calculus of gallbladder with chronic cholecystitis without obstruction (principal); Z87.891 Personal history of nicotine dependence
CPT/HCPCS: 47562; 81025; 84703; 88304; J0131; J0690; J1100; J1170; J1200; J1885; J2175; J2250; J2405; J2704; J2765; J3010; J3490; J7030

== ENCOUNTER → 2023-12-29 09:51 | Outpatient (BNVA) | payer OTHER, SELFPAY | PROVIDERS: PCP Nurse Practitioner; Visit Provider Podiatrist Foot & Ankle Surgery | DX: M92.62 Juvenile osteochondrosis of tarsus, left ankle; M76.62 Achilles tendinitis, left leg | CPT/HCPCS: 73610 ==

== ENCOUNTER 2024-06-17 08:49 | Outpatient (CLI) | payer OTHER, SELFPAY ==
--- NOTE | 2024-06-17 08:54 | MM_ITS ---
WS: [id number] BILATERAL 3D TOMOSYNTHESIS DIGITAL DIAGNOSTIC MAMMOGRAPHY WITH CAD CLINICAL INFORMATION: RIGHT BREAST PAIN HISTORY: RIGHT breast pain COMPARISON: Baseline TECHNIQUE: Bilateral CC, MLO, and ML views. FINDINGS: The breasts are composed of heterogeneous fibroglandular density, which can limit the detection of sm all underlying mass lesions. Pain marker RIGHT breast. Normal underlying parenchymal tissue. Ultrasou nd of this area is pending. ULTRASOUND BREAST RIGHT TECHNIQUE: Ultrasound right breast focused area of concern. CLINICAL INFORMATION: RIGHT BREAST PAIN FINDINGS: Ultrasound RIGHT breast in the area of concern 6 o'clock position 5 cm from the nipple. No underlying cystic or solid lesions. Normal underlying parenchymal tissue. No suspicious lesions of target for b iopsy. Findings are benign. MM/[place] [id number] IMPRESSION: DENSITY: The breasts are heterogeneously dense, which may obscure small masses. BI-RADS: 2 - Benign FOLLOW UP: 1 Year Follow-up Recommend return to annual screening mammography.
== END 2024-06-17 08:50 | disposition home or self-care (01) ==
LOC: RAD 08:49
PROVIDERS: PCP Nurse Practitioner; Visit Provider Nurse Practitioner
DX: N64.4 Mastodynia (principal); R92.333 Mammographic heterogeneous density, bilateral breasts
CPT/HCPCS: 76642; 77062; G0279